=== PATIENT | female | born 1995 | race African-American/Black ===

== ENCOUNTER 2021-03-30 17:29 | Emergency (ER) | payer MEDICAID, OTHER ==
[~2021-03-30] VITALS: Ht 172.7 cm; Wt 86.0 kg
[2021-03-30 17:40] VITALS: BP 119/71
== END 2021-03-30 18:55 | disposition left against medical advice (07) ==
LOC: ER 17:29
DX: Z53.21 Procedure and treatment not carried out due to patient leaving prior to being seen by health care provider (principal)